=== PATIENT | male | born 1950 | race Hispanic/Latino ===

== ENCOUNTER 2023-04-11 07:51 | Day surgery (SDC) | payer OTHER ==
[2023-04-07 13:01] VITALS: BMI 30.2
[2023-04-11] MEDS ORDERED: PROPOFOL 40 ML ONE (10:00)
== END 2023-04-11 11:17 | disposition home or self-care (01) ==
LOC: CSHSDC 07:51
PROVIDERS: ATTEND Internal Medicine Gastroenterology
PROC: 0DBP8ZZ Excision of Rectum, Via Natural or Artificial Opening Endoscopic (ICD-10-PCS; principal; 2023-04-11)
PROC: 0DBH8ZZ Excision of Cecum, Via Natural or Artificial Opening Endoscopic (ICD-10-PCS; principal; 2023-04-11)
DX: Z12.11 Encounter for screening for malignant neoplasm of colon (principal); D12.0 Benign neoplasm of cecum; D12.8 Benign neoplasm of rectum; K64.8 Other hemorrhoids; I10 Essential (primary) hypertension; E11.9 Type 2 diabetes mellitus without complications; G47.30 Sleep apnea, unspecified; N40.0 Benign prostatic hyperplasia without lower urinary tract symptoms; M19.90 Unspecified osteoarthritis, unspecified site; Z90.49 Acquired absence of other specified parts of digestive tract; Z86.010 Personal history of colon polyps; Z80.0 Family history of malignant neoplasm of digestive organs
CPT/HCPCS: 88305; J2704

== ENCOUNTER 2023-09-12 14:25 | Outpatient (CLI) | payer OTHER | END 2023-09-12 14:26 | disposition home or self-care (01) | LOC: CSHRAD 14:25 | PROVIDERS: ATTEND Physician Assistant | DX: M47.22 Other spondylosis with radiculopathy, cervical region (principal); M48.02 Spinal stenosis, cervical region; M43.12 Spondylolisthesis, cervical region | CPT/HCPCS: 72052 ==

== ENCOUNTER 2023-09-20 07:27 | Outpatient (CLI) | payer OTHER | END 2023-09-20 07:28 | disposition home or self-care (01) | LOC: CSHMRI 07:27 | PROVIDERS: ATTEND Physician Assistant | DX: M43.12 Spondylolisthesis, cervical region (principal); M47.22 Other spondylosis with radiculopathy, cervical region; M48.02 Spinal stenosis, cervical region | CPT/HCPCS: 72141 ==